=== PATIENT | female | born 1965 | race Caucasian/White ===

== ENCOUNTER → 2020-01-23 | Outpatient (CLI) | payer OTHER, MEDICAID ==
[~2020-01-23] MED LIST: AMITRIPTYLINE100 M1 PO; CLARITIN10 MG PO; CLINDAMYCIN HC300 MG PO; CLONAZEPAM0.5 MG PO; CYMBALTA60 M1 PO; DIFLUCAN150 MG PO; HYDROCODON APAP PO; KLONOPIN0.5 MG PO; MACRODANTIN50 MG PO; OMEPRAZOLE MAGN20 MG PO; TIZANIDINE HCL4 MG PO; VICODIN ES 7501 TAB PO
== END | disposition home or self-care (01) ==
LOC: LAB 18:49
DX: R05 Cough (principal)

== ENCOUNTER → 2020-08-19 | Outpatient (CLI) | payer OTHER | END | disposition home or self-care (01) | LOC: COVID19 14:25 | PROVIDERS: ATTEND Internal Medicine Critical Care Medicine | DX: Z11.52 Encounter for screening for COVID-19 (principal) ==

== ENCOUNTER → 2020-10-14 | Outpatient (CLI) | payer OTHER ==
[~2020-10-14] MED LIST changes: +BUSPAR5 MG PO; +FENOFIBRATE145 M1 PO; +HYOSCYAMINE0.125 M2 SL; +IBU800 M1 PO; +OMEPRAZOLE40 MG PO; +PROAIR HFA8.5 GM INH; +TYLENOL EXTRA500 MG PO; +VITAMIN D350 MCG PO
== END | disposition home or self-care (01) ==
LOC: RAD 14:45
PROVIDERS: ATTEND Nurse Practitioner Family
DX: M25.572 Pain in left ankle and joints of left foot (principal)

== ENCOUNTER 2020-11-04 20:51 | Observation (INO) | payer OTHER ==
[~2020-11-04] VITALS: Ht 170.1 cm; Wt 72.6 kg
[~2020-11-04 20:51] MED LIST changes: -BUSPAR5 MG PO; -FENOFIBRATE145 M1 PO; -HYOSCYAMINE0.125 M2 SL; -IBU800 M1 PO; -OMEPRAZOLE40 MG PO; -PROAIR HFA8.5 GM INH; -TYLENOL EXTRA500 MG PO; -VITAMIN D350 MCG PO
[2020-11-04 21:00] VITALS: BP 177/78
[2020-11-04 21:29] VITALS: BP 156/74
[2020-11-04 22:40] LABS: BASO % 0.4 % (0.0-1.0); EOS # 0.1 10*3/uL (0.0-0.4); EOS % 1.2 % (1.0-4.0); HEMATOCRIT 33.6 % (37.0-47.0); LYMPH # 0.9 10*3/uL (1.3-4.4); MEAN CELL VOLUME 89.4 fl (81.0-99.0); MEAN CORPUSCULAR HGB 29.5 pg (27.0-31.0); MEAN PLATELET VOLUME 9.1 fl (9.6-12.3); MONO # 0.5 10*3/uL (0.1-1.0); MONO % 9.3 % (3.0-9.0); NEUT # 3.6 10*3/uL (2.3-7.9); NEUT % 71.1 % (47.0-73.0); PLATELET COUNT AUTOMATED 233 10*3/uL (130-400); RED BLOOD COUNT 3.76 10*6/uL (4.10-5.10); WHITE BLOOD COUNT 5.1 10*3/uL (4.8-10.8)
[2020-11-04 22:46] LABS: BILIRUBIN Negative (Negative); BLOOD Negative (Negative); CLARITY Clear (Clear); COLOR Yellow (Yellow); GLUCOSE Negative (Negative); KETONE Negative (Negative); LEUKO ESTERASE Negative (Negative); NITRITE Negative (Negative); SPECIFIC GRAVITY <= 1.005 (1.001-1.030); UROBILINOGEN 0.2 E.U./dl (0.0-1.0)
[2020-11-04 22:54] LABS: URINE AMPHETAMINES < 1000 (1000ng/ml); URINE BARBITURATES < 200 (200ng/ml); URINE BENZODIAZEPINES < 200 (200ng/ml); URINE CANNABINOIDS (THC) < 50 (50ng/ml); URINE COCAINE < 300 (300ng/ml); URINE METHADONE < 300 (300ng/ml); URINE OPIATES < 300 (300ng/ml)
[2020-11-04 22:55] LABS: URINE PHENCYCLIDINE < 25 (25ng/ml)
[2020-11-04 22:58] LABS: ALBUMIN 3.6 gm/dl (3.1-4.5); ALKALINE PHOSPHATASE 47 U/L (45-117); BUN 7 mg/dl (7-24); CHLORIDE 95 mmol/L (98-107); CREATININE 0.67 mg/dL (0.55-1.02); POTASSIUM 3.1 mmol/L (3.5-5.1); SGOT/AST 13 IU/L (3-35); SGPT/ALT 26 U/L (12-78); SODIUM 130 mmol/L (136-145); TOTAL PROTEIN 6.8 gm/dL (6.4-8.2)
[2020-11-04 22:59] LABS: TROPONIN I < 0.015 ng/ml (<0.045)
[2020-11-04 23:01] LABS: BACTERIA TRACE; WBC 0-2 wbc/hpf (0-5)
[2020-11-04 23:25] VITALS: BP 160/72
[2020-11-05 00:51] VITALS: BP 155/70
[2020-11-05 02:20] VITALS: BP 160/78
[2020-11-05] MEDS ORDERED: BUSPAR5 MG PO (03:09)
[2020-11-05] MEDS ORDERED: IBU800 M1 PO (03:10)
[2020-11-05] MEDS ORDERED: VITAMIN D350 MCG PO (03:11)
[2020-11-05] MEDS ORDERED: TYLENOL EXTRA500 MG PO (03:11)
[2020-11-05] MEDS ORDERED: FENOFIBRATE145 M1 PO (03:16)
[2020-11-05] MEDS ORDERED: HYOSCYAMINE0.125 M2 SL (03:17)
[2020-11-05] MEDS ORDERED: PROAIR HFA8.5 GM INH (03:18)
[2020-11-05] MEDS ORDERED: OMEPRAZOLE40 MG PO (03:19)
[2020-11-05 03:53] LABS: BASO % 0.6 % (0.0-1.0); EOS # 0.2 10*3/uL (0.0-0.4); EOS % 3.4 % (1.0-4.0); HEMATOCRIT 34.1 % (37.0-47.0); LYMPH # 1.4 10*3/uL (1.3-4.4); LYMPH % 28.1 % (27.0-41.0); MEAN CELL VOLUME 88.3 fl (81.0-99.0); MEAN CORPUSCULAR HGB 29.5 pg (27.0-31.0); MEAN CORPUSCULAR HGB CONC 33.4 g/dl (33.0-37.0); MEAN PLATELET VOLUME 8.8 fl (9.6-12.3); MONO # 0.6 10*3/uL (0.1-1.0); NEUT # 2.8 10*3/uL (2.3-7.9); NEUT % 55.7 % (47.0-73.0); PLATELET COUNT AUTOMATED 256 10*3/uL (130-400); RED BLOOD COUNT 3.86 10*6/uL (4.10-5.10); RED CELL DISTRI WIDTH 14.1 % (0-14.5)
[2020-11-05 04:07] LABS: BUN 7 mg/dl (7-24); CHLORIDE 101 mmol/L (98-107); CREATININE 0.71 mg/dL (0.55-1.02); POTASSIUM 3.4 mmol/L (3.5-5.1); SODIUM 133 mmol/L (136-145)
[2020-11-05 04:11] LABS: CHOLESTEROL 187 mg/dL (<200); HDL CHOLESTEROL 79 mg/dl (40-60); LDL CHOLESTEROL 85 mg/dL (9-159); TRIGLYCERIDES 113 mg/dl (<150); VLDL CHOLESTEROL 23 mg/dL (6-40)
[2020-11-05 12:00] VITALS: BP 134/57
== END 2020-11-05 16:14 | disposition home or self-care (01) ==
LOC: ED 20:51 → EDHOLD 11-05 00:56 → 5E 11-05 01:36
PROVIDERS: Emergency Medicine; Internal Medicine; ADMIT Internal Medicine; ATTEND Internal Medicine
DX: R55 Syncope and collapse (principal); G89.29 Other chronic pain; M54.9 Dorsalgia, unspecified; F17.210 Nicotine dependence, cigarettes, uncomplicated; D64.9 Anemia, unspecified; E87.6 Hypokalemia; E83.42 Hypomagnesemia; E87.1 Hypo-osmolality and hyponatremia; E87.8 Other disorders of electrolyte and fluid balance, not elsewhere classified; R42 Dizziness and giddiness; I10 Essential (primary) hypertension; J30.2 Other seasonal allergic rhinitis; M79.7 Fibromyalgia; F41.9 Anxiety disorder, unspecified; Z98.890 Other specified postprocedural states

== ENCOUNTER 2021-03-06 18:01 | Emergency (ER) | payer OTHER ==
[~2021-03-06] VITALS: Wt 71.7 kg
[~2021-03-06 18:01] MED LIST changes: +BUSPAR5 MG PO; +FENOFIBRATE145 M1 PO; +HYOSCYAMINE0.125 M2 SL; +IBU800 M1 PO; +OMEPRAZOLE40 MG PO; +PROAIR HFA8.5 GM INH; +TYLENOL EXTRA500 MG PO; +VITAMIN D350 MCG PO
[2021-03-06] MEDS ORDERED: HYDROCODONE-AC1 EAC1 PO (20:11)
== END 2021-03-06 20:45 | disposition home or self-care (01) ==
LOC: ED 18:01
DX: S82.62XA Displaced fracture of lateral malleolus of left fibula, initial encounter for closed fracture (principal); S93.401A Sprain of unspecified ligament of right ankle, initial encounter; F17.210 Nicotine dependence, cigarettes, uncomplicated; Z88.0 Allergy status to penicillin; Z91.040 Latex allergy status; Z88.8 Allergy status to other drugs, medicaments and biological substances; Z79.899 Other long term (current) drug therapy; Z87.42 Personal history of other diseases of the female genital tract; Z90.89 Acquired absence of other organs; Z98.1 Arthrodesis status; Z96.22 Myringotomy tube(s) status; W10.8XXA Fall (on) (from) other stairs and steps, initial encounter; Y93.01 Activity, walking, marching and hiking; Y92.89 Other specified places as the place of occurrence of the external cause; Y99.8 Other external cause status

== ENCOUNTER 2021-04-03 03:36 | Emergency (ER) | payer OTHER ==
[~2021-04-03] VITALS: Ht 170.1 cm; Wt 72.6 kg
[~2021-04-03 03:36] MED LIST changes: +HYDROCODONE-AC1 EAC1 PO
== END 2021-04-03 04:48 | disposition left against medical advice (07) ==
LOC: ED 03:36
DX: M25.572 Pain in left ankle and joints of left foot (principal); I10 Essential (primary) hypertension; Z88.0 Allergy status to penicillin; Z88.8 Allergy status to other drugs, medicaments and biological substances; Z91.040 Latex allergy status; Z79.899 Other long term (current) drug therapy; X58.XXXA Exposure to other specified factors, initial encounter; Y93.89 Activity, other specified; Y92.89 Other specified places as the place of occurrence of the external cause; Y99.8 Other external cause status

== ENCOUNTER → 2023-12-07 | Outpatient (CLI) | payer MEDICARE ==
[2023-12-07 13:11] LABS: BUN 9 mg/dl (9-23); CHLORIDE 100 mmol/L (98-107); POTASSIUM 4.1 mmol/L (3.4-5.1)
== END | disposition home or self-care (01) ==
LOC: LAB 12:06
PROVIDERS: ATTEND Nurse Practitioner Family
DX: R06.02 Shortness of breath (principal); E87.8 Other disorders of electrolyte and fluid balance, not elsewhere classified; I50.9 Heart failure, unspecified; N28.9 Disorder of kidney and ureter, unspecified; R53.83 Other fatigue

== ENCOUNTER → 2024-09-20 | Outpatient (CLI) | payer MEDICARE ==
[2024-09-20 16:54] LABS: BUN 11 mg/dl (9-23); CHLORIDE 93 mmol/L (98-107); POTASSIUM 4.3 mmol/L (3.4-5.1)
== END | disposition home or self-care (01) ==
LOC: LAB 16:16
PROVIDERS: ATTEND Internal Medicine
DX: E83.42 Hypomagnesemia (principal); E83.52 Hypercalcemia

== ENCOUNTER → 2024-10-08 | Outpatient (CLI) | payer MEDICARE ==
[2024-10-08 15:17] LABS: BUN 12 mg/dl (9-23); CHLORIDE 97 mmol/L (98-107); POTASSIUM 3.9 mmol/L (3.4-5.1)
== END | disposition home or self-care (01) ==
LOC: LAB 14:22
PROVIDERS: ATTEND Internal Medicine
DX: R79.0 Abnormal level of blood mineral (principal)

== ENCOUNTER → 2024-12-03 | Outpatient (CLI) | payer MEDICARE ==
[2024-12-03 12:06] LABS: BUN 11 mg/dl (9-23); CHLORIDE 95 mmol/L (98-107); CHOLESTEROL 216 mg/dL (<200); LDL CHOLESTEROL 111 mg/dL (9-159); POTASSIUM 4.2 mmol/L (3.4-5.1); TRIGLYCERIDES 75 mg/dl (<150)
== END | disposition home or self-care (01) ==
LOC: LAB 10:26
PROVIDERS: ATTEND Internal Medicine
DX: E78.5 Hyperlipidemia, unspecified (principal)

== ENCOUNTER 2025-01-03 16:46 | Emergency (ER) | payer MEDICARE ==
[~2025-01-03] VITALS: Ht 167.6 cm; Wt 67.1 kg
[2025-01-03] MEDS ORDERED: Doxycycline Hyclate 100 MG 2 TAB ED PACK PO SCH (18:15)
[2025-01-03] MEDS ORDERED: VIBRAMYCIN100 MG PO (18:17)
== END 2025-01-03 18:47 | disposition home or self-care (01) ==
LOC: ED 16:46
DX: S50.861A Insect bite (nonvenomous) of right forearm, initial encounter (principal); F43.9 Reaction to severe stress, unspecified; Z88.0 Allergy status to penicillin; Z91.040 Latex allergy status; Z88.8 Allergy status to other drugs, medicaments and biological substances; Z79.899 Other long term (current) drug therapy; Z87.42 Personal history of other diseases of the female genital tract; Z87.891 Personal history of nicotine dependence; Z90.89 Acquired absence of other organs; Z96.22 Myringotomy tube(s) status; W57.XXXA Bitten or stung by nonvenomous insect and other nonvenomous arthropods, initial encounter; Y93.89 Activity, other specified; Y92.89 Other specified places as the place of occurrence of the external cause; Y99.8 Other external cause status

== ENCOUNTER 2025-01-12 13:01 | Emergency (ER) | payer MEDICARE ==
[~2025-01-12] VITALS: Ht 167.6 cm; Wt 68.0 kg
[~2025-01-12 13:01] MED LIST changes: +ATARAX,VISTARIL10 MG PO; +ENTRESTO 24 MG1 EACH PO; +MAGOX 400400 MG PO; +Ondansetron4 MG PO; +VANCOCIN125 M1 PO; +VANCOMYCIN HCL125 MG PO; +VIBRAMYCIN100 MG PO
[2025-01-12] MEDS ORDERED: Ondansetron Hydrochloride 4 MG TAB SL ONE (13:25)
[2025-01-12 14:06] LABS: BASO % 0.7 % (0.0-1.0); EOS # 0.1 10*3/uL (0.0-0.4); HEMATOCRIT 38.7 % (37.0-47.0); MEAN CELL VOLUME 94.2 fl (81.0-99.0); MEAN CORPUSCULAR HGB 32.6 pg (27.0-31.0); MEAN CORPUSCULAR HGB CONC 34.6 g/dl (33.0-37.0); MEAN PLATELET VOLUME 8.6 fl (9.6-12.3); MONO # 0.4 10*3/uL (0.1-1.0); MONO % 9.9 % (3.0-9.0); NEUT # 2.7 10*3/uL (2.3-7.9); NEUT % 61.1 % (47.0-73.0); PLATELET COUNT AUTOMATED 238 10*3/uL (130-400); RED BLOOD COUNT 4.11 10*6/uL (4.10-5.10); RED CELL DISTRI WIDTH 12.6 % (0-14.5); WHITE BLOOD COUNT 4.5 10*3/uL (4.8-10.8)
[2025-01-12 14:39] LABS: ALKALINE PHOSPHATASE 51 U/L (46-116); BUN 7 mg/dl (9-23); CHLORIDE 94 mmol/L (98-107); LIPASE 33 U/L (12-53); SGPT/ALT 63 U/L (5-49); TOTAL PROTEIN 7.4 gm/dL (6.0-8.0)
[2025-01-12] MEDS ORDERED: Ondansetron4 MG PO (15:19)
[2025-01-12] MEDS ORDERED: MAGNESIUM CITRATE 296 ML BOT PO ONE (15:25)
== END 2025-01-12 15:35 | disposition home or self-care (01) ==
LOC: ED 13:01
PROVIDERS: Physician Assistant Medical
DX: K59.00 Constipation, unspecified (principal); R11.2 Nausea with vomiting, unspecified; F41.9 Anxiety disorder, unspecified; M79.7 Fibromyalgia; I11.0 Hypertensive heart disease with heart failure; I50.9 Heart failure, unspecified; Z88.0 Allergy status to penicillin; Z91.040 Latex allergy status; Z88.8 Allergy status to other drugs, medicaments and biological substances; Z79.899 Other long term (current) drug therapy; Z98.890 Other specified postprocedural states; Z87.442 Personal history of urinary calculi; Z90.89 Acquired absence of other organs